=== PATIENT | female | born 1995 | race Caucasian/White ===

== ENCOUNTER 2016-08-07 00:03 | Emergency (ER) | payer BC, OTHER ==
[~2016-08-07] VITALS: Ht 157.5 cm; Wt 90.1 kg
[~2016-08-07 00:03] MED LIST: AMT10 PO
[2016-08-07 00:13] VITALS: TEMP 36.8; Ht 157.5 cm; Wt 90.1 kg
--- NOTE | 2016-08-07 00:29 | EMERGENCY ROOM VISIT NOTE ---
History Report prepared by Scribe: Will Nicole Under the Supervision of: Dr. Kleber Fields D.O. First contact with patient: 00:21 Chief Complaint: HEAD INJURY (MINOR) Stated Complaint: HIT HEAD History of Present Illness The patient is a 21 year old female who presents to the Emergency Room with complaints of persistent head pain since 199 yesterday. The patient went to lay down and hit her head on the backboard. The patient did not lose coconsciousness but was "seeing stars" briefly after the injury. The patient has a history of migraines for which she follows up with Neurology. The patient experiences vision changes with her migraines. The patient has not been eating today secondary to pain. As per physicist light and optics the patient has been zoning out and appears more forgetful since the injury. Source of History: patient, friend Onset: 199 yesterday Position: head Symptom Intensity: 10/20 Timing: other (persistent) Associated Symptoms: No LOC Review of Systems See HPI for pertinent positives and negatives. A total of ten systems were reviewed and were otherwise negative. Past Medical & Surgical Medical Problems: (1) Migraine Family History Patient reports no known family medical history. Social History Smoking Status: Never Smoker Alcohol Use: occasionally Drug Use: none Marital Status: single Housing Status: lives with roommate Occupation Status: [employer] student Current/Historical Medications Scheduled Amitriptyline HCl (Amitriptyline HCl), 10 MG PO HS Allergies Coded Allergies: Sulfamethoxazole w/Trimethoprim (Verified Allergy, Unknown, RASH, 01/12/15) Physical Exam Vital Signs Date Time Temp Pulse Resp B/P Pulse Ox O2 Delivery O2 Flow Rate FiO2 08/07/16 00:41 18 08/07/16 00:13 36.8 100 16 124/83 100 Room Air Physical Exam GENERAL: Awake, alert, well-appearing, in no distress HENT: Normocephalic, atraumatic. Oropharynx unremarkable. EYES: Normal conjunctiva. Sclera non-icteric. NECK: Supple. No nuchal rigidity. FROM. No JVD. RESPIRATORY: Clear to auscultation. CARDIAC: Regular rate, normal rhythm. Extremities warm and well perfused. Pulses equal. ABDOMEN: Soft, non-distended. No tenderness to palpation. No rebound or guarding. No masses. RECTAL: Deferred. MUSCULOSKELETAL: Chest examination reveals no tenderness. The back is symmetrical on inspection without obvious abnormality. There is no CVA tenderness to palpation. No joint edema. LOWER EXTREMITIES: Calves are equal size bilaterally and non-tender. No edema. No discoloration. NEURO: Normal sensorium. No sensory or motor deficits noted. SKIN: No rash or jaundice noted. Medical Decision & Procedures ER Provider Diagnostic Interpretation: CT results as stated below per my review and radiologist interpretation CT HEAD: No ICH, mass effect or edema. No skull fracture. Radiologist: Edel Olson MD. ED Course 0025: The patient was evaluated in room A10. A complete history and physical exam was performed. 0100: I reevaluated the patient. Discussed results and discharge instructions: She verbalized understanding and agreement. The patient is ready for discharge. Medical Decision Differential diagnosis includes concussion, migraine, closed head injury. Reexamination at 1:05 AM the patient is nonfocal has a GCS of 15. I discussed the workup the patient patient's boyfriend at bedside Impression Primary Impression: Closed head injury Scribe Attestation The scribe's documentation has been prepared under my direction and personally reviewed by me in its entirety. I confirm that the note above accurately reflects all work, treatment, procedures, and medical decision making performed by me. Departure Information Dispostion Home / Self-Care Referrals No Doctor, Assigned (PCP) Patient Instructions ED Head Injury Closed, [facility] Health Problem Qualifiers Primary Impression: Closed head injury Encounter type: initial encounter Qualified Codes: S09.90XA - Unspecified injury of head, initial encounter
[2016-08-07] MEDS ORDERED: AMT10 PO (01:21)
[2016-08-07] MEDS ORDERED: RIZA10TA18 PO (01:21)
[2016-08-07 01:23] VITALS: BP 114/81; PULSE 91; O2SAT 96
--- NOTE | 2016-08-07 07:22 | DIAGNOSTIC IMAGING REPORT ---
CT SCAN OF THE BRAIN WITHOUT IV CONTRAST CLINICAL HISTORY: Headache. COMPARISON STUDY: No priors. TECHNIQUE: Unenhanced axial CT scan of the brain is performed from the vertex to the skull base. Automated dose control exposure was utilized. CT DOSE: 537.48 mGy.cm FINDINGS: Brain parenchyma: The brain parenchyma is normal in appearance. There is no hemorrhage, mass effect, or evidence of acute territorial ischemia by CT criteria. Rene-white matter is preserved. No extra-axial fluid collection is seen. Ventricles, sulci, cisterns: Normal in configuration. Intracranial vasculature: The visualized intracranial vasculature at the skull base is normal in appearance. Calvarium: Unremarkable. Sinuses and mastoids: The visualized paranasal sinuses are clear. The mastoid air cells are well pneumatized. Orbits: The bony orbits are grossly intact. IMPRESSION: No acute intracranial abnormality. Electronically signed by: Jw Bailey M.D. 08/07/2016 7:21 AM Dictated Date/Time: 08/07/2016 7:20 AM
== END 2016-08-07 01:24 | disposition home or self-care (01) ==
LOC: C.EDB 00:04 → C.EDA 01:24
DX: S09.8XXA Other specified injuries of head, initial encounter (principal); R51 Headache; W22.8XXA Striking against or struck by other objects, initial encounter; Y92.003 Bedroom of unspecified non-institutional (private) residence as the place of occurrence of the external cause